=== PATIENT | male | born 1965 | race Caucasian/White ===

== ENCOUNTER 2019-12-26 17:12 | Emergency (ER) | payer MEDICAID ==
[~2019-12-26] VITALS: Ht 175.3 cm; Wt 69.9 kg
--- NOTE | 2019-12-26 17:16 | NUR ---
BIB RA C/O UNWITNESSED SEIZURE FOR UNKNOWN DURATION NO ORAL TRAUMA OR URINARY INCONTINENCE. BS 170 IN FIELD, PT TO BED 11, -SOB, NAD NOTED, VSS, PENDING MD ENCINAS
[2019-12-26 17:47] LABS: EOSINOPHILS % (AUTO) 5.7 % (0.0-6.0); HEMATOCRIT 41 % (39-51); HEMOGLOBIN 14.1 g/dL (13.5-17.5); LYMPHOCYTES # (AUTO) 1.1 /CMM (0.8-4.8); LYMPHOCYTES % (AUTO) 11.9 % (20.0-44.0); MEAN CORPUSCULAR HGB CONC 34 g/dl (31.0-36.0); MEAN CORPUSCULAR VOLUME 88 fL (80-96); MONOCYTES # (AUTO) 0.7 /CMM (0.1-1.30); MONOCYTES % (AUTO) 6.9 % (2.0-12.0); NEUTROPHILS # (AUTO) 7.2 /CMM (1.8-8.9); NEUTROPHILS % (AUTO) 75.5 % (43.0-81.0); PLATELET COUNT (AUTO) 355 /CMM (150-450); RED BLOOD CELL COUNT(AUTO) 4.69 MIL/uL (4.5-6.0); WHITE BLOOD COUNT (AUTO) 9.6 K/uL (4.3-11.0)
[2019-12-26 17:54] LABS: CALCIUM, SERUM 8.7 mg/dL (8.5-10.1); CARBON DIOXIDE 30 mmol/L (21-32); CHLORIDE 101 mmol/L (98-107); CREATININE 0.8 mg/dL (0.6-1.3); GLUCOSE 79 mg/dL (74-106); POTASSIUM 3.7 mmol/L (3.5-5.1); SODIUM SERUM 139 mmol/L (136-145); UREA NITROGEN, BLOOD 9 mg/dL (7-18)
[2019-12-26 18:00] LABS: ALANINE AMINOTRANSFERASE 20 U/L (12-78); ALBUMIN 3.8 g/dL (3.4-5.0); ALCOHOL, BLOOD < 3 mg/dL (0-0); ALKALINE PHOSPHATASE 82 U/L (46-116); ASPARTATE AMINOTRANSFERASE 20 U/L (15-37); BILIRUBIN,DIRECT 0.1 mg/dL (0.0-0.2); BILIRUBIN,TOTAL 0.6 mg/dL (0.2-1.0); TOTAL PROTEIN, SERUM 7.7 g/dL (6.4-8.2)
[2019-12-26 18:09] LABS: PHENYTOIN (DILANTIN) < 0.5 ug/ml (10.0-20.0)
[2019-12-26] MEDS ORDERED: phenytoin PO (18:12)
[2019-12-26] MEDS ORDERED: levetiracetam PO (18:12)
--- NOTE | 2019-12-26 19:01 | NUR ---
REPORT GIVEN TO HECTOR MACDONALD FOR EMILI
--- NOTE | 2019-12-26 19:13 | NUR ---
PATIENT STATES, "I WANNA LEAVE, IF I DON'T GET FOOD." [facility] IS CALLED FOR FOOD. PATIENT REFUSES TO BE PLACED ON MONITOR. MD NOTIFIED.
--- NOTE | 2019-12-26 19:38 | NUR ---
PATIENT FINISHED FOOD.
[2019-12-26 20:24] VITALS: BP 115/66
--- NOTE | 2019-12-26 20:25 | NUR ---
Patient given written and verbal discharge instructions. Patient verbalizes understanding of instructions. Patient is ambulatory with steady gait. Refuses offer of assisted placement. Patient given list of available shelters in surrounding area.
--- NOTE | 2019-12-26 20:25 | NUR ---
Patient discharged to home in stable condition. Written and verbal after care instructions given. Patient verbalizes understanding of instruction.
== END 2019-12-26 20:25 | disposition home or self-care (01) ==
LOC: EDBD 17:14 → ER 17:14
DX: G40.909 Epilepsy, unspecified, not intractable, without status epilepticus (principal); R41.0 Disorientation, unspecified; Z79.899 Other long term (current) drug therapy
CPT/HCPCS: 36415; 70450-TC; 71045-TC; 80048-TC; 80076-TC; 80185-TC; 80305; 83605-TC; 85025-TC; G0480